=== PATIENT | female | born 1955 | race Caucasian/White ===

== ENCOUNTER 2016-10-14 23:00 | Emergency (ER) | payer OTHER ==
[~2016-10-14] VITALS: Ht 172.7 cm; Wt 81.6 kg
[~2016-10-14 23:00] MED LIST: ASPIRIN325 M2 PO; CALCIUM 600600 M1 PO; CARBAMAZEPINE200 MG PO; COLACE100 M1 PO; DEMECLOCYCLINE150 MG PO; ESCITALOPRAM OX20 MG PO; FLUOXETINE HCL40 M1 PO; KEPPRA750 M1 PO; LYRICA150 MG PO; LYRICA300 MG PO; MIRALAX17 G1 PO; PHENOBARBITAL32.4 MG PO; PHENOBARBITAL64.8 MG PO; PRINIVIL20 M1 PO; RISPERIDONE0.5 MG PO; RISPERIDONE1 M1 PO; RISPERIDONE2 MG PO; SENNA8.6 M1 PO; SODIUM CHLORI1000 MG PO; TEGRETOL200 MG PO; TRAZODONE HCL50 MG PO; TRAZODONE50 MG PO; VITAMIN D250000 UNIT PO
--- NOTE | 2016-10-15 02:12 | ED GENERAL ADULT ---
History of Present Illness General Chief Complaint: General Adult Stated Complaint: BIBA FOR HYPERTENSION Source: patient Exam Limitations: no limitations Vital Signs & Intake/Output Vital Signs & Intake/Output Vital Signs Date Time Temp Pulse Resp B/P B/P Pulse O2 O2 Flow FiO2 Mean Ox Delivery Rate 10/15 1007 78 18 210/100 10/15 0950 78 18 210/100 10/15 0907 80 18 180/80 10/15 0803 72 18 172/100 10/15 0802 80 18 172/100 10/15 0524 186/98 10/15 0418 97.7 62 18 191/92 98 Room Air 10/15 0325 186/92 10/15 0223 98.3 65 20 186/92 96 Room Air 10/14 2323 98.0 61 18 194/98 96 Room Air ED Intake and Output 10/15 0000 10/14 1200 Intake Total Output Total Balance Patient 180 lb Weight Weight Estimated Measurement Method Allergies Coded Allergies: NO KNOWN ALLERGIES (12/01/10) Reconcile Medications Aspirin (Aspir-Annie) 325 MG TABLET.DR 1 TAB PO DAILY UNKNOWN (Reported) Carbamazepine (Tegretol) 200 MG TAB 2 TAB PO BID seizures DEMECLOCYCLINE HCL (Demeclocycline Hydrochloride) 300 MG TABLET 1 TAB PO BID UNKNOWN (Reported) Docusate Sodium (Colace) 100 MG CAPSULE 1 CAP PO BID UNKNOWN (Reported) ERGOCALCIFEROL (VITAMIN D2) (Vitamin D2) 50,000 IU SGL 50,000 IU PO VITAMIN D SUPPLEMENT (Reported) Escitalopram Oxalate 20 MG TABLET 1 TAB PO DAILY UNKNOWN (Reported) FLUOXETINE HCL (Fluoxetine Hydrochloride) 40 MG CAP 1 CAP PO DAILY MENTAL HEALTH (Reported) Levetiracetam 500 MG TABLET 1 TAB PO BID UNKNOWN (Reported) Lisinopril (Prinivil) 5 MG TABLET 1 TAB PO DAILY UNKNOWN (Reported) Polyethylene Glycol 3350 (Miralax) 17 GRAM/DOSE POWDER 17 GM PO DAILY UNKNOWN (Reported) mix with water, juice, soda, coffee or tea Risperidone (Risperidone 1 MG Tab) 1 MG TAB 1 TAB PO QPM UNKNOWN (Reported) Sodium Chloride 1 GRAM TABLET 2 TAB PO BID UNKNOWN (Reported) TRAZODONE HCL (Trazodone HCl) 50 MG TABLET 1 TAB PO QPM UNKNOWN (Reported) Triage Note: BIBA FROM [facility] FOR HTN. PT ON METOPROLOL FOR PRESSURE. HAS HAD ELEVATED PRESSURES ALL DAY HIGH 210/110 AND HAS NOT RESPONDED TO PO MEDS AT [facility]. PCP TOLD [facility] TO SENT PT TO ED FOR EVALUATION. UPON ARRIVAL MANUAL PRESSURE. PT AWAKE, ALERT, IN NO OVERT DISTRESS Triage Nurses Notes Reviewed? yes Onset: Morning Duration: hour(s):, continues in ED Timing: multiple episodes today Severity: severe HPI: Patient presents for evaluation of an elevated blood pressure at the [facility]. Patient was treated with metoprolol without improvement. Patient has no complaints currently including no complaint of chest pain, shortness of breath, abdominal pain or visual changes. She has been compliant with her blood pressure medications. (BEENA PEREZ,MARIELY Gonzalez) Past History Travel History Traveled to [facility] past 21 day No Medical History Any Pertinent Medical History? see below for history Neurological: seizure, CONVULSIONS NEURO HYPOPHYSIS DISORDER SUBDURAL HEMMORHAGE Cardiovascular: hypertension Gastrointestinal: constipation Musculoskeletal: CHRONIC PAIN Blood Disorders: anemia, VITAMIN B DEFICIENCY Other Medical Hx: Neuro hypophysis disorder, subdural hemorrhage, hypertension, anemia, convulsions History of MRSA: No History of VRE: No History of CDIFF: No Influenza Vaccine: 03/28/14 Tetanus Vaccine: 06/01/11 Surgical History Surgical History: non-contributory Psychosocial History Who do you live with Family What is your primary language Yakut Tobacco Use: Current Daily Use Daily Tobacco Use Amount/Type: => 5 Cigarettes daily ETOH Use: denies use Illicit Drug Use: denies illicit drug use Family History Hx Contributory? No (BEENA PEREZ,MARIELY Gonzalez) Review of Systems Review of Systems Constitutional: Reports: no symptoms. EENTM: Reports: no symptoms. Respiratory: Reports: no symptoms. Cardiovascular: Reports: no symptoms. GI: Reports: no symptoms. Genitourinary: Reports: no symptoms. Musculoskeletal: Reports: no symptoms. Skin: Reports: no symptoms. Neurological/Psychological: Reports: no symptoms. Hematologic/Endocrine: Reports: no symptoms. Immunologic/Allergic: Reports: no symptoms. All Other Systems: Reviewed and Negative (BEENA PEREZ,MARIELY Gonzalez) Physical Exam Physical Exam General Appearance: SEE BELOW Comments: Gen.: Well-nourished, well-developed, no acute respiratory distress. Head: Normocephalic, atraumatic. Eyes: Normal inspection bilaterally Ears: Normal inspection bilaterally Nose: Normal inspection Throat/mouth : Moist mucosa Neck: Supple, full range of motion, no goiter Heart: Regular rate and rhythm, no murmurs rubs or gallops Lungs: Clear to auscultation bilaterally with normal air entry Chest: Nontender Back: Normal range of motion Abdomen: Soft, nontender, nondistended, normal bowel sounds Extremities: Normal range of motion grossly, equal radial pulses, no cyanosis clubbing or edema Neurologic: Cranial nerves grossly intact, speech is clear Skin: warm and dry Psychiatric: Calm, cooperative, no apparent delusions or hallucinations (MARIELY HARGROVE MD) Core Measures ACS in differential dx? No CVA/TIA Diagnosis: No Severe Sepsis Present: No Septic Shock Present: No (SHIRA CARTWRIGHT MD) Progress Differential Diagnoses I considered the following diagnoses in my evaluation of the patient: Hypertensive urgency, hypertensive emergency, essential hypertension Plan of Care: Follow-up PCP for consideration of antihypertensive medication dose adjustment Initial ED EKG: none (MARIELY HARGROVE MD) Comments: As the patient was being wheeled out of the emergency room a repeat blood pressure showed 170/100. Patient is asymptomatic. Patient given 20 mg of lisinopril and will be observed patient and her blood pressure comes down. As long as her blood pressure comes on she is return to the extended care facility. (SHIRA CARTWRIGHT MD) Departure Departure Condition: Stable Clinical Impression Primary Impression: Hypertension Qualifiers: Hypertension type: essential hypertension Qualified Code: I10 - Essential (primary) hypertension Referrals: ROBERTO CARLOS CORONEL MD (PCP/Family) Additional Instructions: Continue current medications. Follow-up with your primary care physician for reevaluation of your blood pressure and consideration of modification of your current medication doses. Return if any concerns or sudden worsening. Departure Forms: Customer Survey General Discharge Information (MARIELY HARGROVE MD) Departure Disposition: ACUTE REHAB FACILITY (SHIRA CARTWRIGHT MD) Critical Care Note Critical Care Note Critical Care Time: non-applicable (SHIRA CARTWRIGHT MD)
[2016-10-15 13:08] VITALS: BP 188/88
[2016-11-13] MEDS ORDERED: TEGRETOL200 M1 PO (14:41)
[2016-11-13] MEDS ORDERED: AMLODIPINE BESY10 M1 PO (14:44)
[2016-11-13] MEDS ORDERED: ACETAMINOPHEN500 M4 PO (14:46)
[2016-11-13] MEDS ORDERED: FERROUS SULFAT325 M3 PO (14:48)
[2016-11-13] MEDS ORDERED: NEXIUM40 M1 PO (14:49)
[2016-11-13] MEDS ORDERED: SENNA8.6 M3 PO (14:49)
[2016-11-13] MEDS ORDERED: LOPRESSOR50 M1 PO (14:50)
[2016-11-13] MEDS ORDERED: TRAZODONE HCL50 M1 PO (14:51)
[2016-11-13] MEDS ORDERED: REMERON15 M2 PO (14:52)
[2016-11-13] MEDS ORDERED: LIDOCAINE1 EACH TOP (14:52)
== END 2016-10-15 07:40 ==
LOC: ERH 23:00
DX: I10 Essential (primary) hypertension (principal); Z72.0 Tobacco use